=== PATIENT | female | born 1995 | race African-American/Black ===

== ENCOUNTER 2025-02-26 06:23 | Emergency (ER) | payer BC, OTHER ==
[2025-02-26] MEDS ORDERED: Ketorolac Tromethamine 30 MG (1 mL) VIAL ONE (07:36)
== END 2025-02-26 07:55 | disposition home or self-care (01) ==
LOC: CSHERS 06:23
DX: O03.9 Complete or unspecified spontaneous abortion without complication (principal); Z3A.10 10 weeks gestation of pregnancy
CPT/HCPCS: 36430; 76857; 80053; 83735; 84702; 85025; 86850; 86900; 86901; 88305; 96365; 96372; 96375; J1885; J2270; J2405; J2550; J3010; J3490; P9016